=== PATIENT | female | born 1960 | race Caucasian/White ===

== ENCOUNTER → 2016-11-27 | Outpatient (CLI) | payer OTHER | LOC: FIMAGING 09:05 | PROVIDERS: ATTEND Family Medicine | DX: Z12.31 Encounter for screening mammogram for malignant neoplasm of breast (principal) | CPT/HCPCS: G0202 ==

== ENCOUNTER 2017-01-16 11:37 | Emergency (ER) | payer OTHER ==
[2017-01-16 11:44] VITALS: RESP 16; O2SAT 98
--- NOTE | 2017-01-16 12:00 | EDPHY ---
H & P Smoking Status: Former smoker Time Seen by Provider: 01/16/17 11:47 HPI/ROS: CHIEF COMPLAINT: Fall, left wrist injury HISTORY OF PRESENT ILLNESS: 57-year-old female presents to the emergency department with injury to her left wrist. The patient was at the garden and lost her balance and fell forward injuring her left wrist. She did not hit her head or lose consciousness. She denies neck or back pain. Denies chest pain or difficulty breathing. Denies abdominal pain. She denies any presyncopal symptoms prior to her fall. She is right-hand dominant. She complains of isolated pain to the left wrist. Denies pain in her left elbow or shoulder. REVIEW OF SYSTEMS: Constitutional: No fever, no chills. Eyes: No double or blurry vision. ENT: No sore throat. Respiratory: No cough, no shortness of breath. Cardiac: No chest pain. Gastrointestinal: No abdominal pain, vomiting or diarrhea. Genitourinary: No dysuria. Musculoskeletal: No neck or back pain. Skin: No rashes. Neurological: No headache. (Kathy Nievesa M) Past Medical/Surgical History: Facial surgery, uterine ablation (Ezequiel,Shellie M) Social History: and lives in [place] (Ezequiel,Shellie M) Physical Exam: General Appearance: Alert, no distress. No visible signs of trauma to her head. She is mentating normally and answering questions appropriately. Eyes: Pupils equal and round. Extraocular motions are all intact. ENT: Mouth: Mucous membranes moist. Respiratory: No wheezing, rhonchi, or rales, lungs are clear to auscultation. Cardiovascular: Regular rate and rhythm. Gastrointestinal: Abdomen is soft and nontender, no masses, no rebound or guarding, bowel sounds normal. Neurological: Alert and oriented x 3, cranial nerves II through XII grossly intact Skin: Warm and dry, no rashes. Musculoskeletal: Nontender to palpate along the cervical, thoracic or lumbar spine. Neck is supple. Extremities: Tenderness with palpation especially over the left wrist over the distal radius. Unable to supinate secondary to pain. She is able to wiggle her fingers. Normal sensation to light touch with normal 2 point discrimination. Strong radial pulse at the left wrist. Nontender to palpate the left elbow or shoulder. Full range of motion of the right upper extremity and lower extremities bilaterally. Psychiatric: Patient is oriented X 3, there is no agitation. (Shellie Nieves) Constitutional: Initial Vital Signs Temperature (C) 36.5 C 01/16/17 11:41 Heart Rate 72 01/16/17 11:41 Respiratory Rate 16 01/16/17 11:41 Blood Pressure 116/76 01/16/17 11:41 O2 Sat (%) 98 01/16/17 11:41 O2 Delivery Mode Room Air Allergies/Adverse Reactions: No Known Allergies Allergy (Unverified 11/21/13 12:19) Home Medications: Medication Instructions Recorded Synthroid 01/16/17 Medical Decision Making - Diagnostics Imaging: I viewed and interpreted images myself - Diagnostics Imaging Results: X-rays of the left wrist reveal distal radius fracture as well as ulnar styloid fracture. This is reviewed by myself the PAC system. Radiology interpretation to follow. 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 (Shellie Nieves) ED Course/Re-evaluation: 57-year-old female presents to the emergency department with left wrist injury. X-rays reveal distal radius and ulnar fracture. She was placed in a splint and given orthopedic referral. I do not think reduction is necessary. The patient has seen Dr. Deb Carlos in the past. She was also given the name of Dr. Tripp Hathaway who is on-call for General Orthopedics. (Shellie Nieves) Did not see this patient while she was in the emergency department. However her care was discussed with the PA while the patient was in the department. I agree with treatment plan and management (Tucker Nixon) Differential Diagnosis: Including but not limited to fracture, dislocation, contusion, sprain (Shellie Nieves) Departure - Departure Disposition: Home, Routine, Self-Care Clinical Impression: Left wrist fracture Condition: Good Instructions: Wrist Fracture in Adults (ED) Additional Instructions: Keep splint on and keep it dry. Ibuprofen 600 mg every 8 hours as needed for pain. Follow up with orthopedic surgeon this week to recheck. Ice and elevate to help minimize swelling. Referrals: Deb Carlos MD [Medical Doctor] - As per Instructions Tripp Hathaway MD [Medical Doctor] - As per Instructions (Orthopedic surgeon on- call)
[2017-01-16 13:05] VITALS: BP 134/78; PULSE 81; TEMP 98.6
== END 2017-01-16 12:50 | disposition home or self-care (01) ==
DX: S52.502A Unspecified fracture of the lower end of left radius, initial encounter for closed fracture (principal); S52.612A Displaced fracture of left ulna styloid process, initial encounter for closed fracture; Z87.891 Personal history of nicotine dependence; W18.39XA Other fall on same level, initial encounter; Y92.007 Garden or yard of unspecified non-institutional (private) residence as the place of occurrence of the external cause; Y99.8 Other external cause status

== ENCOUNTER → 2017-12-03 | Outpatient (CLI) | payer OTHER | LOC: FIMAGING 07:53 | PROVIDERS: ATTEND Physician Assistant Medical | DX: Z12.31 Encounter for screening mammogram for malignant neoplasm of breast (principal) ==